=== PATIENT | female | born 1985 | race Caucasian/White ===

== ENCOUNTER 2020-03-24 08:32 | Day surgery (SDC) | payer OTHER ==
[~2020-03-24 08:32] MED LIST: HYDROmorphone 2 MG/ML VIAL IV PRN; LAMO200T6 PO; LEVO137T3 PO; MEDR10TA PO; METH-38 PO; MORPHINE SULFATE 2 MG/ML VIAL. IV PRN; NORT25CA PO; OMEP20CA16 PO; ONDANSETRON PF 4 MG/2 ML VIAL. IV PRN; PROCHLORPERAZINE 10 MG/2 ML VIAL. IV PRN; TEMA15CA PO; TRAZ-123 PO; fentaNYL PF VIAL 100 MCG/2 ML VIAL IV PRN
[2020-03-24] MEDS: IV RINGERS,LACTATED 1000ML 1,000 ML IV SCH ×2 (09:18→11:22)
[2020-03-24] MEDS ORDERED: LIDOCAINE 2% PF 5 ML VIAL. ONE (09:25)
[2020-03-24] MEDS ORDERED: ONDANSETRON PF 4 MG/2 ML VIAL. ONE (09:25)
[2020-03-24] MEDS ORDERED: DEXAMETHASONE SOD PHOS 4 MG/ML VIAL ONE (09:25)
[2020-03-24] MEDS ORDERED: PROPOFOL 10 MG/ML (20ML) VIAL. IV ONE (09:25)
[2020-03-24] MEDS ORDERED: fentaNYL PF VIAL 100 MCG/2 ML VIAL ONE (09:29)
[2020-03-24] MEDS ORDERED: MIDAZOLAM HCL/PF 2 MG/2 ML VIAL. ONE (09:29)
[2020-03-24] MEDS ORDERED: SEVOFLURANE 31 TO 60 MINUTES. IH ONE (10:23)
[2020-03-24] MEDS ORDERED: KETOROLAC 30 MG/ML VIAL. ONE (10:37)
--- NOTE | 2020-03-24 11:13 | PDOC ---
BRIEF OPERATIVE NOTE Date: March 24, 2020 Pre-Op Diagnosis DUB, endometrial thickening, failing outpatient medical management Post-Op Diagnosis same plus polyps and submucosal fibroids Procedure Performed h/s D&C with truclear Surgeon Dr. Viji Lezama Anesthesiologist Dr. Sims Anesthesia Type: General Blood Loss 15cc IV Fluid see anesthesia records Urine Output straight cath prior to procedure Specimens Obtained endometrial currettings Findings polyps and a submucosal fibroid in upper left anterior wall near tubal ostia; uterus sounded to 6-6.5cm Complications none Operative Note [id number] VIJI LEZAMA MD March 24, 2020 11:13
[2020-03-24] MEDS ORDERED: diphenhydrAMINE 50 MG/ML VIAL IV PRN (11:15)
[2020-03-24] MEDS ORDERED: NALOXONE 0.4 MG/ML VIAL. IV PRN (11:15)
[2020-03-24] MEDS ORDERED: CALCIUM CARBONATE 500 MG TAB.CHEW PO PRN (11:15)
[2020-03-24] MEDS ORDERED: MAG HYDROX/ALUMINUM HYD/SIMETH 30 ML ORAL.SUSP PO PRN (11:15)
[2020-03-24] MEDS ORDERED: HYDROcodone/APAP 5/325MG 1 TAB TABLET PO PRN (11:15)
[2020-03-24] MEDS ORDERED: 0.9 % SODIUM CHLORIDE 10 ML DISP.SYRIN. IV PRN (11:15)
[2020-03-24] MEDS ORDERED: diphenhydrAMINE HCL 25 MG CAPSULE PO PRN (11:15)
[2020-03-24] MEDS ORDERED: SIMETHICONE 80 MG TAB.CHEW PO PRN (11:15)
[2020-03-24] MEDS: fentaNYL PF VIAL 100 MCG/2 ML VIAL IV PRN ×3 (11:21→12:11)
[2020-03-24] MEDS ORDERED: HYDR-2761 PO (11:27)
[2020-03-24] MEDS ORDERED: oxyCODONE/APAP 5/325 1 TAB TABLET PO ONE ×2 (11:30)
--- NOTE | 2020-03-24 11:33 | OP ---
DATE OF SURGERY: 03/24/2020 PREOPERATIVE DIAGNOSES: Dysfunctional uterine bleeding, failing outpatient medical management with Provera and endometrial thickening on sonogram. POSTOPERATIVE DIAGNOSES: Dysfunctional uterine bleeding, failing outpatient medical management with Provera and endometrial thickening on sonogram plus submucosal fibroid and polyps. PROCEDURE PERFORMED: Hysteroscopy, D and C with TruClear. SURGEON: Gera Lezama MD COUNTER SALES PERSON: OR personnel. ANESTHESIOLOGIST: Samy Sims MD ANESTHESIA: General. ESTIMATED BLOOD LOSS: 15 mL. URINE OUTPUT: With a straight cath prior to procedure. INTRAVENOUS FLUIDS: Please see anesthesia records. SPECIMENS: Endometrial curettings with specimen obtained. FINDINGS: She had a uterus that sounded to 6-6.5 cm polyps and a submucosal fibroid in the left upper anterior uterine wall near the tubal ostia on that side. COMPLICATIONS: None. DESCRIPTION OF PROCEDURE: This patient was taken to the operating room where general anesthesia was placed. The patient was placed in dorsal lithotomy position in Demar stirrups. The patient's vagina was prepped and draped in the normal sterile fashion and a straight cath urine was done prior to starting. Upon my arrival, a timeout was performed. Once everyone agreed on the patient, the procedure, the site, the procedure was begun. A weighted speculum was placed in the patient's vagina and a single tooth tenaculum was used to grasp the anterior lip of the cervix. The dilators were used to dilate up to a 7-8 with the Hegar dilators. She sounded to 6-6.5 cm. The TruClear scope was placed in. After it was primed with the above findings, the small shaver was placed in and the polyps were removed under direct visualization. Both tubal ostia were clearly seen. Near the left tubal ostia on the anterior wall, there was a submucosal fibroid that was turned up a little bit and it was taken down as well and shaved down as well. Once this was done, the cavity was clear. There was no more polyps, no more fibroids. Both tubal ostia were clearly seen. It was a normal cavity and the procedure was ended. The tenaculum was removed from the cervix. There was minimal bleeding. The weighted speculum was removed and the procedure was ended. The patient was awakened from anesthesia and brought to recovery room in stable condition. GERA LEZAMA MD DR: SANTINO/rashida JOB#: [id number] / [id number]
[2020-03-24 12:00] VITALS: BP 116/43
--- NOTE | 2020-03-25 16:06 | PATHOLOGY ---
[facility] Accession Number: [id number] . 01 Material submitted: . endometrium - ENDOMETRIAL CURETTINGS . 01 Clinical history: . Dysfunctional uterine bleeding . 02 Diagnosis: Endometrial curettings: - Endometrial polyps. - Inactive/weakly proliferative endometrium. . ([facility]; 03/25/2020) [facility] 03/25/2020 1339 Local . 02 Comment: There is no evidence of hyperplasia or malignancy. . ([facility]:mm; 03/25/2020) . 02 Electronically signed: . Bhargav Briggs MD, Pathologist NPI- [id number] . 01 Gross description: . The specimen is received in formalin, labeled "Beti Rascon, endometrial curettings". Received are multiple segments of pale ahn soft tissue admixed with blood coagulum measuring 2.0 x 0.9 x 0.2 cm in aggregate dimensions. The specimen is filtered and entirely submitted in cassette A1. ([facility]; 03/24/2020) QA/QA 03/24/2020 1742 Local . 02 Pathologist provided ICD-10: N84.0, N85.9, N93.8 . 02 CPT . 873871 Specimen Comment: A courtesy copy of this report has been sent to [phone], [phone] Specimen Comment: [id number] Specimen Comment: Report sent to / DR SWEET Performed at: 01 [facility] [address], [place] [id number] MD Dominguez Alfaro MD Phone: [phone] Performed at: 02 [facility] [address], [place] [id number] MD Bhargav Briggs MD Phone: [phone]
== END 2020-03-24 13:26 | disposition home or self-care (01) ==
LOC: SURG 08:32
PROVIDERS: ATTEND Obstetrics & Gynecology
DX: N93.8 Other specified abnormal uterine and vaginal bleeding (principal); D25.0 Submucous leiomyoma of uterus; K21.9 Gastro-esophageal reflux disease without esophagitis; E89.0 Postprocedural hypothyroidism; D64.9 Anemia, unspecified; F31.9 Bipolar disorder, unspecified; E66.3 Overweight; Z68.27 Body mass index [BMI] 27.0-27.9, adult; Z11.59 Encounter for screening for other viral diseases; Z87.891 Personal history of nicotine dependence; Z87.39 Personal history of other diseases of the musculoskeletal system and connective tissue; Z72.89 Other problems related to lifestyle; Z85.850 Personal history of malignant neoplasm of thyroid
CPT/HCPCS: 36415; 58558; 81025; 87635; 88305; J1100; J1885; J2250; J2405; J2704; J3010; J3490